=== PATIENT | female | born 1930 | race Caucasian/White ===

== ENCOUNTER → 2016-06-11 | Outpatient (CLI) | payer MEDICARE, OTHER | END | disposition home or self-care (01) | LOC: YCHH 10:22 | PROVIDERS: ATTEND Family Medicine | DX: N18.9 Chronic kidney disease, unspecified (principal); D64.9 Anemia, unspecified; E78.5 Hyperlipidemia, unspecified; I25.10 Atherosclerotic heart disease of native coronary artery without angina pectoris ==

== ENCOUNTER → 2016-06-25 | Outpatient (CLI) | payer MEDICARE, OTHER | END | disposition home or self-care (01) | LOC: YCHH 11:51 | PROVIDERS: ATTEND Family Medicine | DX: D64.9 Anemia, unspecified (principal); N18.9 Chronic kidney disease, unspecified ==

== ENCOUNTER 2016-07-20 22:44 | Observation (INO) | payer MEDICARE, OTHER ==
[2016-07-20] MEDS ORDERED: ASPIRIN TABLET 325 MG TAB ONE (23:02)
[2016-07-20] MEDS ORDERED: ASPIRIN TABLET 325 MG TAB PO ONE (23:07)
[2016-07-21] MEDS ORDERED: HYDROCOD/APAP 10/325 (ER DISP) # 3 tablets PO ONE (00:11)
--- NOTE | 2016-07-21 00:13 | RAD ---
EXAM DESCRIPTION: Chest,1 View CLINICAL HISTORY: upper back pain COMPARISON: January 13, 2016 FINDINGS: Cardiac silhouette is within normal limits. Aorta is tortuous, unchanged compared with the prior exam. There is atherosclerosis. The patient is rotated. There is no focal parenchymal or pleural disease. There is no acute osseous process visualized. IMPRESSION: No evidence of acute cardiopulmonary disease. Electronically signed by: Angel Bowen MD 07/21/2016 12:12 AM CDT
--- NOTE | 2016-07-21 00:14 | ED.PDOC ---
History of Present Illness - General Chief Complaint: Back Pain or Injury Stated Complaint: BACK PAIN Time Seen by Provider: 07/20/16 23:04 Source: patient Exam Limitations: other - dementia - History of Present Illness Initial Comments: Patient presents by EMS complaining of severe lower back pain for about 11-12 hours. Patient is a poor history that seems due to dementia. She says she was working around the house when the pain suddenly developed. It is located in the upper lumbar area, non-radiating, sharp and stabbing, worse with movement but patient has trouble getting comfortable at rest, no previous episodes, no associated sx. Patient gives no other history. Timing/Duration: other - 11 hours Severity: moderate Improving Factors: rest Worsening Factors: movement Associated Symptoms: denies symptoms Allergies/Adverse Reactions: Allergies Lisinopril Allergy (Verified 12/29/15 06:54) Home Medications: Ambulatory Orders Aspirin [Baby Aspirin] 81 mg PO QD 12/18/13 Furosemide 40 mg PO DAILY 12/18/13 Cobalamine Combinations [Vitamin B12/Folic Acid 500-400 Mcg] 1 tab PO DAILY 07/19 Donepezil HCl [Aricept] 10 mg PO BEDTIME 06/08/15 Spironolactone [Aldactone] 25 mg PO BID 06/08/15 Metoprolol Succinate [Toprol Xl] 50 mg PO DAILY 07/20/16 Review of Systems - Review of Systems Constitutional: States: no symptoms reported EENTM: States: no symptoms reported Respiratory: States: no symptoms reported Cardiology: States: no symptoms reported Gastrointestinal/Abdominal: States: no symptoms reported Genitourinary: States: no symptoms reported Musculoskeletal: States: no symptoms reported Skin: States: no symptoms reported Neurological: States: no symptoms reported Endocrine: States: no symptoms reported Hematologic/Lymphatic: States: no symptoms reported Past Medical History (General) - Patient Medical History Hx Seizures: No Hx Stroke: No Hx Dementia: Yes Hx Asthma: No Hx of COPD: No Hx Cardiac Disorders: Yes Hx Congestive Heart Failure: Yes Hx Pacemaker: No Hx Hypertension: Yes Hx Thyroid Disease: No Hx Diabetes: No Hx Gastroesophageal Reflux: No Hx Renal Disease: No Hx Cancer: No Hx of HIV: No Hx Hepatitis C: No Hx MRSA: No Surgical History: Hysterectomy - Vaccination History Hx Tetanus, Diphtheria Vaccination: No Hx Influenza Vaccination: Yes Hx Pneumococcal Vaccination: No - Social History Hx Tobacco Use: No Hx Chewing Tobacco Use: No Hx Alcohol Use: No Hx Substance Use: No Hx Substance Use Treatment: No Hx Depression: No Hx Physical Abuse: No Hx Emotional Abuse: No Hx Suspected Abuse: No - Female History Patient is a Female of Child Bearing Age (10 -59 yrs old): No Patient : No Family Medical History - Family History Maternal Family History: Unknown Physical Exam - Physical Exam General Appearance: Alert Eye Exam: bilateral normal Ears, Nose, Throat: normal ENT inspection Neck: non-tender, full range of motion, supple Respiratory: lungs clear Cardiovascular/Chest: normal peripheral pulses, regular rate, rhythm Gastrointestinal/Abdominal: normal bowel sounds, non tender, soft Back Exam: no CVA tenderness, vertebral tenderness - TTP over upper lumbar vertebrae, NTTP over quadratus lumborum bilaterally Extremity: pedal edema - 2+ non-pitting Neurologic: hospital unit clerk II-XII nml as tested, no motor/sensory deficits, alert, normal mood/affect, oriented x 3 Skin Exam: normal color Lymphatic: no adenopathy Progress - Progress Progress: 07/21/16 00:14 EKG showed sinus bradycardia. No ST elevations nor depressions. No LBBB. troponin negative 07/21/16 00:25 07/21/16 01:13 CT ab/pelvis was negative. There were lumbar degenerative changes. The patient was given hydrocodone/APAP 10/325 mg po x one with very little change in her pain. She was admitted for intractable back pain. Departure - Departure Clinical Impression: Intractable low back pain Disposition: Admit Patient Condition: Good Departure Forms: ED Discharge - Pt. Copy, Patient Portal Self Enrollment Home Medications: Ambulatory Orders Aspirin [Baby Aspirin] 81 mg PO QD 12/18/13 Furosemide 40 mg PO DAILY 12/18/13 Cobalamine Combinations [Vitamin B12/Folic Acid 500-400 Mcg] 1 tab PO DAILY 07/19 Donepezil HCl [Aricept] 10 mg PO BEDTIME 06/08/15 Spironolactone [Aldactone] 25 mg PO BID 06/08/15 Metoprolol Succinate [Toprol Xl] 50 mg PO DAILY 07/20/16
[2016-07-21] MEDS ORDERED: HYDROcodone 10MG/APAP 325MG 1 EA TAB PO ONE (00:15)
[2016-07-21] MEDS ORDERED: HYDROcodone 10MG/APAP 325MG 1 EA TAB ONE (00:18)
--- NOTE | 2016-07-21 01:05 | CT ---
EXAM: Abdoment/Pelvis w/o Contrast CLINICAL INDICATION: 85-year-old female with low back pain and possible stone versus abdominal aortic aneurysm. COMPARISON: 02/28/2015.. EXAMINATION: CT of the abdomen and pelvis was performed without intravenous or oral contrast. Multiplanar reformatted images were provided. FINDINGS: Evaluation of solid organ pathology is limited secondary to lack of intravenous contrast. Within these limitations, the following observations are made. Chest: Evaluation through the lung bases reveals no focal opacity, pleural effusion or pneumothorax. Heart size is within normal limits. No pericardial effusion. Abdomen and pelvis: The liver, gallbladder, pancreas, spleen, bilateral kidneys and bilateral adrenal glands are within normal limits. The vessels reveal after cavalry scout calcification otherwise normal in caliber. No abdominopelvic lymph nodes are noted to be pathologically enlarged by CT measurement criteria. The bowel is within normal limits with extensive fecal debris present throughout the large bowel. There is no abnormal bowel wall thickness or bowel dilation. Sigmoid colon moderate to severe diverticular disease with occasional scattered diverticula throughout the remainder of the large bowel. No free air. No free abdominopelvic fluid collections. The appendix is within normal limits. The osseous structures reveal diffuse demineralization and degenerative change. Lumbar spine dextrocurvature. Trace anterolisthesis of L4 relative to L5 suspected secondary to the degenerative facet change at that level. Superior endplate deformity of L3 compatible with Schmorl's node. IMPRESSION: 1. No specific acute intra-abdominal findings are noted to suggest etiology of the patient's abdominal pain. 2. Atherosclerotic calcification of the abdominal pelvic aorta and branch vessels without findings to suggest abdominal aortic aneurysm as clinically questioned. 3. No calculi identified present within the bilateral renal collecting system. 4. No radiodense calculi present within the gallbladder. 5. Sigmoid colon moderate to severe diverticular disease with occasional scattered diverticula throughout the remainder of the large bowel. 6. 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 For further assessment, nonemergent MRI is recommended if the patient's symptoms persist. Electronically signed by: Nataliya Cerna MD 07/21/2016 1:04 AM CDT
[2016-07-21] MEDS ORDERED: SODIUM CHLORIDE 0.9% (FLUSH) 10 ML SYG IV PRN (02:08)
[2016-07-21] MEDS ORDERED: SODIUM CHLORIDE 0.9% 1000ML 1,000 ML IVS PRN (02:08)
[2016-07-21] MEDS ORDERED: HYDROcodone 10MG/APAP 325MG 1 EA TAB PO PRN (02:13)
[2016-07-21] MEDS ORDERED: ENOXAPARIN SODIUM 30 MG/0.3 ML SYG SUBCU SCH ×2 (02:30→21:00)
[2016-07-21] MEDS ORDERED: IV SET AND CAP CHANGE INJ INJ SCH (02:30)
[2016-07-21] MEDS ORDERED: PANTOPRAZOLE SODIUM IV 40 MG VIAL IV SCH ×2 (02:30→21:00)
[2016-07-21 07:29] VITALS: BP 137/70; TEMP 97; O2SAT 97
[2016-07-21] MEDS ORDERED: SODIUM CHLORIDE 0.9% 10 ML VIAL IV PRN (07:44)
--- NOTE | 2016-07-21 12:17 | SSS ---
DISCHARGE DIAGNOSES: 1. Acute left sided low back pain probably related to an acute ligamental strain with advanced degenerative changes of the lumbar spine with associated muscle spasm showing clinical improvement. 2. Chronic dementia. 3. Chronic renal insufficiency currently stable. 4. History of hypertension on medication. HISTORY OF PRESENT ILLNESS: This 85 year-old white female was placed in the hospital for overnight observation because of intractable pain on the left flank with her living by herself and unable to respond fully to the medications for pain relief given in the Emergency Room. She had the acute onset during the day. She has been bending over and lifting things from the floor. She has had similar pain a few years before but infrequently. She had a CT scan of the abdomen and pelvis to rule out any type of dissection of the aneurysm as well as kidney stones, etc., and none was noted. Because of the magnitude of the pain, the patient was placed in the hospital for overnight observation to assist with ongoing treatment of the pain to allow her to get to the point where she would be able to be managed by herself. Previous history reveals the family lives in [place] and were wanting her to go there if possible to live closer to family, but she is very insistent upon living in her current home situation where she lives by herself. She has had Home Health in the past. PAST MEDICAL HISTORY: 1. Hypertension. 2. Mild history of dementia. PAST OBSTETRICAL HISTORY: 2 para 1 with 1 miscarriage. PAST SURGICAL HISTORY: 1. Hysterectomy. CURRENT MEDICATIONS: Please refer to nurses' notes for an up to date list of home medications verified. ALLERGIES: LISINOPRIL. FAMILY HISTORY: Positive for coronary artery disease. SOCIAL HISTORY: The patient has never smoked. She has worked many jobs. Her was in the and they travelled a lot. REVIEW OF SYSTEMS: No significant weight change. No fever or chills. LUNGS: No significant shortness of breath or cough. CARDIOVASCULAR: No cardiac palpitations but she has had chest discomfort in the past. ABDOMEN: No nausea, vomiting, diarrhea or blood in the stools. EXTREMITIES: Some chronic edema. BACK: Worsening pain in the left side of her abdomen and flank, resolved as the hospital course continued. NEUROLOGIC: No significant paresthesias or headaches. PHYSICAL EXAMINATION: VITAL SIGNS: Afebrile, pulse 55, blood pressure 137/70, pulse oximetry 97% on room air. Weight 82.8 kilos. GENERAL: The patient is awake, alert and oriented, and communicative. HEENT: Within normal limits. NECK: Supple. No adenopathy. CHEST: Lungs are generally clear. CARDIOVASCULAR: Heart tones are regular without any significant gallops or murmurs. ABDOMEN: Soft, non-tender with no organomegaly noted. EXTREMITIES: Have a trace of edema, otherwise no pain. BACK: Exam does reveal some residual tenderness over the left flank, otherwise no significant discomfort noted at the time of her discharge after continued supportive care was provided overnight. LABORATORY STUDIES: White count 7,800, hemoglobin 11.9, INR 0.91. Chemistry shows potassium 3.7, BUN 38, creatinine 1.97 and stable, glucose 108. Albumin 3.2, beta natriuretic peptide 116. Troponin zero. Liver enzymes normal. No cultures obtained. Abdominal/pelvic CT scan showed degenerative changes of the lumbar spine, otherwise no acute abdominal pathology evident. Chest x-ray showed no acute findings. HOSPITAL COURSE: The patient was much improved on the morning of discharge and will be discharged to have continued outpatient followup much at the patient's wishes at this time. Encourage close followup with Dr. Ruelas in the clinic. PLAN: Followup with Dr. Ruelas within the next week in the clinic. Suggest social service assistance in eventually making plans to allow her to be living closer to her family if possible. She was given a prescription for some Tylenol #3 which she will be able to use in her first aid kit 1 every 4 hours p.r.n. pain #20 given. Continue with increased activity. Avoid bending over when lifting things from the floor. Stay active and return if not improving. [id number]
== END 2016-07-21 10:23 | disposition home or self-care (01) ==
LOC: ER 22:44 → MS 07-21 01:25
PROVIDERS: ADMIT Nurse Practitioner Acute Care; ATTEND Emergency Medicine
DX: M54.5 Low back pain (principal); M47.816 Spondylosis without myelopathy or radiculopathy, lumbar region; M62.830 Muscle spasm of back; F03.90 Unspecified dementia, unspecified severity, without behavioral disturbance, psychotic disturbance, mood disturbance, and anxiety; I12.9 Hypertensive chronic kidney disease with stage 1 through stage 4 chronic kidney disease, or unspecified chronic kidney disease; N18.9 Chronic kidney disease, unspecified; M41.9 Scoliosis, unspecified; M51.46 Schmorl's nodes, lumbar region; R00.1 Bradycardia, unspecified; I70.0 Atherosclerosis of aorta; K57.30 Diverticulosis of large intestine without perforation or abscess without bleeding; Z60.2 Problems related to living alone; Z82.49 Family history of ischemic heart disease and other diseases of the circulatory system; Z79.82 Long term (current) use of aspirin; Z79.899 Other long term (current) drug therapy; Z88.8 Allergy status to other drugs, medicaments and biological substances
CPT/HCPCS: 36415 ×2; 71010; 74176; 80053 ×2; 81001; 82550; 82553; 83735; 83880; 84484; 85025 ×2; 85610; 85730; 93005; 96372; 96374; 99284; G0378; J1650; J7030

== ENCOUNTER 2016-07-31 01:23 | Emergency (ER) | payer MEDICARE, OTHER ==
[2016-07-31 01:33] VITALS: O2SAT 95
--- NOTE | 2016-07-31 01:42 | ED.PDOC ---
History of Present Illness - General Chief Complaint: Back Pain or Injury Stated Complaint: back pain Time Seen by Provider: 07/31/16 01:32 Source: patient, RN notes reviewed, Vital Signs reviewed Exam Limitations: no limitations - History of Present Illness Initial Comments: Patient reports sudden onset of L sided back pain that started about 4pm yesterday. Denies any injury and can't figure out why it hurts. She did not take anything for the pain. Patient was admitted to hospital 10 days ago for L back pain. She reports this is different pain, that was her sciatica not her back. Timing/Duration: 7-24 hours Quality/Severity: moderate Back Pain Location: paraspinous muscles - mid back Back Pain Radiation: other - none Method of Injury/Prior Injury: other - none Improving Factors: nothing Worsening Factors: nothing Associated Symptoms: denies symptoms Allergies/Adverse Reactions: Allergies Lisinopril Allergy (Verified 07/21/16 01:58) Home Medications: Ambulatory Orders Aspirin [Baby Aspirin] 81 mg PO QD 12/18/13 Furosemide 40 mg PO DAILY 12/18/13 Cobalamine Combinations [Vitamin B12/Folic Acid 500-400 Mcg] 1 tab PO DAILY 07/19 Donepezil HCl [Aricept] 10 mg PO BEDTIME 06/08/15 Spironolactone [Aldactone] 25 mg PO BID 06/08/15 Metoprolol Succinate [Toprol Xl] 50 mg PO DAILY 07/20/16 Acetaminophen W/ Codeine [Tylenol W/ CODEINE #3] 1 ea PO Q4H PRN #20 07/21/16 Cyclobenzaprine HCl [Flexeril] 5 mg PO BEDTIME PRN #15 tab 07/31/16 Review of Systems - Review of Systems Constitutional: States: no symptoms reported Respiratory: States: no symptoms reported Cardiology: States: no symptoms reported Gastrointestinal/Abdominal: States: no symptoms reported Genitourinary: States: no symptoms reported Musculoskeletal: States: see HPI, back pain Skin: States: no symptoms reported Neurological: States: no symptoms reported Endocrine: States: no symptoms reported Past Medical History (General) - Patient Medical History Hx Seizures: No Hx Stroke: No Hx Dementia: No Hx Asthma: No Hx of COPD: No Hx Cardiac Disorders: No Hx Congestive Heart Failure: No Hx Pacemaker: No Hx Hypertension: Yes Hx Thyroid Disease: No Hx Diabetes: No Hx Gastroesophageal Reflux: No Hx Renal Disease: No Hx Cancer: No Hx of HIV: No Hx Hepatitis C: No Hx MRSA: No Surgical History: Hysterectomy - Vaccination History Hx Tetanus, Diphtheria Vaccination: No Hx Influenza Vaccination: No Hx Pneumococcal Vaccination: No Immunizations Up to Date: - unknown - Social History Hx Tobacco Use: No Hx Chewing Tobacco Use: No Hx Alcohol Use: No Hx Substance Use: No Hx Substance Use Treatment: No Hx Depression: No Feels Threatened In Home Enviroment: No Feels Threatened In a Relationship: No Hx Physical Abuse: No Hx Emotional Abuse: No Hx Suspected Abuse: No - Female History Patient : No Family Medical History - Family History Maternal Family History: Unknown Living Status: Physical Exam - Physical Exam General Appearance: Alert, Comfortable, No apparent distress, Well Developed, Well Groomed, Well Hydrated, Well Nourished, Other - Very comfortable talking and sharing stories with staff Neck Exam: non-tender, full range of motion, normal alignment, normal inspection Cardiovascular/Respiratory: regular rate, rhythm, no M/R/G, no JVD, no respiratory distress, other - Few crackles LLL Gastrointestinal/Abdominal: normal bowel sounds, non tender, soft, no organomegaly, no pulsatile mass Back Exam: CVA tenderness (L), muscle spasm, other - Tender L lower thoracic paraspinous muscles. Extremity Exam: no evidence of injury Neurologic: alert, normal mood/affect, oriented x 3 Skin Exam: normal color, warm/dry Progress - Progress Progress: 07/31/16 02:40 Patient up to x-ray and bathroom without difficulty. No obvious signs of pain. She does report her pain is better with the Tylenol but still there. Will give a muscle relaxer. 07/31/16 03:18 Patient is pain free. Will d/c home with script for Flexeril - Results/Orders Results/Orders: Laboratory Tests 07/31/16 02:10 Urine Color Yellow Urine Appearance Clear Urine pH 7.0 Ur Specific [place] 1.015 Urine Protein Negative Urine Glucose (UA) Negative Urine Ketones Negative Urine Blood Negative Urine Nitrite Negative Urine Bilirubin Negative Urine Urobilinogen 0.2 Ur Leukocyte Esterase Small H Urine RBC 0 Urine WBC 1-3 Ur Epithelial Cells 1-3 Urine Bacteria Rare Nl urine except small Leuk. No sign of infection or kidney stone. - EKG/XRAY/CT XRAY: chest - No acute process per Radiology Departure - Departure Clinical Impression: Strain of thoracic region Qualifiers: Encounter type: subsequent encounter Qualifier Code: (S29.019D) Strain of muscle and tendon of unspecified wall of thorax, subsequent encounter Time of Disposition: :18 Disposition: Discharge to Home or Self Care Condition: Good Departure Forms: ED Discharge - Pt. Copy, Patient Portal Self Enrollment Instructions: DI for Low Back Pain Diet: resume usual diet Activity: increase activity as tolerated Prescriptions: Cyclobenzaprine HCl [Flexeril] 5 mg PO BEDTIME PRN #15 tab PRN Reason: Moderate To Severe Pain Home Medications: Ambulatory Orders Aspirin [Baby Aspirin] 81 mg PO QD 12/18/13 Furosemide 40 mg PO DAILY 12/18/13 Cobalamine Combinations [Vitamin B12/Folic Acid 500-400 Mcg] 1 tab PO DAILY 07/19 Donepezil HCl [Aricept] 10 mg PO BEDTIME 06/08/15 Spironolactone [Aldactone] 25 mg PO BID 06/08/15 Metoprolol Succinate [Toprol Xl] 50 mg PO DAILY 07/20/16 Acetaminophen W/ Codeine [Tylenol W/ CODEINE #3] 1 ea PO Q4H PRN #20 07/21/16 Cyclobenzaprine HCl [Flexeril] 5 mg PO BEDTIME PRN #15 tab 07/31/16
[2016-07-31] MEDS ORDERED: ACETAMINOPHEN 500 MG TAB PO ONE (01:45)
--- NOTE | 2016-07-31 02:20 | RAD ---
Clinical History : L mid back pain , MAIN Exam : PA and lateral views of the chest 07/31/2016 1:45 AM CDT Comparisons : Portable AP view of the chest July 20, 2016 Findings : The lungs are clear without focal consolidation or pleural effusion. The heart is normal in size. The mediastinal contours are normal in appearance. There are vascular calcifications along the aortic arch. The patient is osteopenic which limits evaluation of the thoracic spine. The ribs and shoulders are grossly normal. Limited evaluation of the upper abdomen demonstrates no gross abnormalities. Impression: No acute cardiopulmonary disease (stable appearing chest). Electronically signed by: Cele Beaulieu MD 07/31/2016 2:19 AM CDT
[2016-07-31] MEDS ORDERED: CYCLOBENZAPRINE HCL 5 MG TAB PO ONE (02:41)
[2016-07-31] MEDS ORDERED: CYCLOBENZAPRINE HCL 10 MG TAB ONE (02:42)
[2016-07-31 05:11] VITALS: TEMP 97.5
[2016-07-31 06:08] VITALS: BP 162/75
[2016-07-31] MEDS ORDERED: NAPROXEN 500 MG TAB PO ONE (06:57)
[2016-07-31] MEDS ORDERED: NAPROXEN 500 MG TAB ONE (06:59)
== END 2016-07-31 07:15 | disposition home or self-care (01) ==
LOC: ER 01:23
DX: S29.019A Strain of muscle and tendon of unspecified wall of thorax, initial encounter (principal); I10 Essential (primary) hypertension; Z79.82 Long term (current) use of aspirin; Z79.899 Other long term (current) drug therapy; Z88.8 Allergy status to other drugs, medicaments and biological substances

== ENCOUNTER → 2016-09-03 | Outpatient (CLI) | payer MEDICARE, OTHER | END | disposition home or self-care (01) | LOC: YCHH 09:24 | PROVIDERS: ATTEND Family Medicine | DX: D64.9 Anemia, unspecified (principal); I10 Essential (primary) hypertension; E78.5 Hyperlipidemia, unspecified ==

== ENCOUNTER → 2016-09-13 | Outpatient (CLI) | payer MEDICARE, OTHER | END | disposition home or self-care (01) | LOC: GMAM 14:18 | PROVIDERS: ATTEND Family Medicine | DX: N39.0 Urinary tract infection, site not specified (principal) ==

== ENCOUNTER → 2016-10-15 | Outpatient (CLI) | payer MEDICARE, OTHER | END | disposition home or self-care (01) | LOC: GMAM 14:16 | PROVIDERS: ATTEND Family Medicine | DX: F32.89 Other specified depressive episodes (principal); R60.0 Localized edema ==

== ENCOUNTER → 2016-11-05 | Outpatient (CLI) | payer MEDICARE, OTHER | END | disposition home or self-care (01) | LOC: YCHH 11:08 | PROVIDERS: ATTEND Family Medicine | DX: N39.0 Urinary tract infection, site not specified (principal) ==

== ENCOUNTER 2017-02-06 08:54 | Emergency (ER) | payer MEDICARE, OTHER ==
[2017-02-06] MEDS ORDERED: ACETAMINOPHEN 500 MG TAB PO ONE (09:16)
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
--- NOTE | 2017-02-06 10:01 | RAD ---
EXAM DESCRIPTION: Pelvis,2 or More Views CLINICAL HISTORY: 86 years Female, R low back pain s/p fall COMPARISON: None. FINDINGS: 5 views of the pelvis show no acute fracture or malalignment. Mild degenerative changes are noted in both hips. There are moderate multilevel degenerative changes in the mid and lower lumbar spine only partially visualized. The sacroiliac joint spaces are well-maintained. Moderate amount of colonic stool and gas, but the soft tissues are otherwise unremarkable. 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 If clinical suspicion of pelvic injury persists, CT is recommended. Electronically signed by: Wilner Childers MD 02/06/2017 10:00 AM CDT Workstation: [id number]
[2017-02-06] MEDS ORDERED: CYCLOBENZAPRINE HCL 5 MG TAB PO ONE (10:18)
[2017-02-06 13:08] VITALS: BP 107/50; TEMP 97.8; O2SAT 97
== END 2017-02-06 13:00 | disposition home or self-care (01) ==
LOC: ER 08:54
DX: S30.0XXA Contusion of lower back and pelvis, initial encounter (principal); M62.830 Muscle spasm of back; I10 Essential (primary) hypertension; F03.90 Unspecified dementia, unspecified severity, without behavioral disturbance, psychotic disturbance, mood disturbance, and anxiety; Z79.82 Long term (current) use of aspirin; Z88.8 Allergy status to other drugs, medicaments and biological substances; Z79.899 Other long term (current) drug therapy; W19.XXXA Unspecified fall, initial encounter; Y92.9 Unspecified place or not applicable